=== PATIENT | female | born 1950 | race Caucasian/White ===

== ENCOUNTER 2019-01-16 13:31 | Outpatient (CLI) | payer MEDICARE, OTHER ==
--- NOTE | 2019-01-16 15:20 | BD ---
BONE DENSITOMETRY USING DEXA: Date: 01/16/19 HISTORY: Postmenopausal screening for osteoporosis. FINDINGS: Lumbar Spine: BMD (g/cm2) L1 1.359 T-Score: 3.4 Z-Score: 5.0 L2 1.543 T-Score: 4.7 Z-Score: 6.5 L3 1.698 T-Score: 5.6 Z-Score: 7.5 L4 1.639 T-Score: 5.3 Z-Score: 7.3 L1-L4 1.567 T-Score: 4.7 Z-Score: 6.6 Femoral Neck: 0.820 T-Score: -0.3 Z-Score: 1.3 Total Femur: 1.086 T-Score: 1.2 Z-Score: 2.5 IMPRESSION: Normal bone mineral density. No evidence of osteopenia/osteoporosis. POS: C
--- NOTE | 2019-01-18 15:32 | MMO ---
Bilateral MAMMO Bilat Screen [facility]. CLINICAL HISTORY: Patient is 68 years old and is seen for screening. The patient has no family history of breast cancer. The patient has no personal history of cancer. VIEWS: The views performed were: bilateral craniocaudal with tomosynthesis and bilateral mediolateral oblique with tomosynthesis. FILMS COMPARED: The present examination has been compared to prior imaging studies performed at [facility] on 06/01/2016 and 08/09/2017. MAMMOGRAM FINDINGS: There are scattered fibroglandular densities. There are benign appearing calcifications seen in both breasts. There are no suspicious masses, calcifications or areas of architectural distortion. IMPRESSION: CALCIFICATIONS IN BOTH BREASTS ARE BENIGN. A ROUTINE FOLLOW-UP MAMMOGRAM IN 1 YEAR IS RECOMMENDED. THE RESULTS OF THIS EXAM WERE SENT TO THE PATIENT. ACR BI-RADS Category 2 - Benign finding MAMMOGRAPHY NOTE: 1. A negative mammogram report should not delay a biopsy if a dominant of clinically suspicious mass is present. 2. Approximately 10% to 15% of breast cancers are not detected by mammography. 3. Adenosis and dense breasts may obscure an underlying neoplasm.
== END 2019-01-16 13:32 | disposition home or self-care (01) ==
LOC: BICMAMMO 13:31
PROVIDERS: ATTEND Family Medicine
DX: Z12.31 Encounter for screening mammogram for malignant neoplasm of breast (principal); Z13.820 Encounter for screening for osteoporosis; R92.1 Mammographic calcification found on diagnostic imaging of breast
CPT/HCPCS: 77063; 77067; 77080

== ENCOUNTER 2021-03-14 14:29 | Outpatient (CLI) | payer MEDICARE, OTHER | END 2021-03-14 14:30 | disposition home or self-care (01) | LOC: BICMAMMO 14:29 | PROVIDERS: ATTEND Registered Nurse Community Health | DX: Z12.31 Encounter for screening mammogram for malignant neoplasm of breast (principal) | CPT/HCPCS: 77063; 77067 ==

== ENCOUNTER 2022-05-04 11:36 | Outpatient (CLI) | payer OTHER | END 2022-05-04 11:37 | disposition home or self-care (01) | LOC: SCSMRI 11:36 | PROVIDERS: ATTEND Family Medicine | DX: S33.9XXD Sprain of unspecified parts of lumbar spine and pelvis, subsequent encounter (principal); S30.1XXD Contusion of abdominal wall, subsequent encounter; S43.92XD Sprain of unspecified parts of left shoulder girdle, subsequent encounter; S20.02XD Contusion of left breast, subsequent encounter; M25.552 Pain in left hip; R10.814 Left lower quadrant abdominal tenderness; M47.816 Spondylosis without myelopathy or radiculopathy, lumbar region | CPT/HCPCS: 72148 ==

== ENCOUNTER 2023-12-13 15:06 | Outpatient (CLI) | payer MEDICARE | END 2023-12-13 15:07 | disposition home or self-care (01) | LOC: BICMAMMO 15:06 | PROVIDERS: ATTEND Internal Medicine Rheumatology | DX: M81.0 Age-related osteoporosis without current pathological fracture (principal); M46.1 Sacroiliitis, not elsewhere classified; M47.816 Spondylosis without myelopathy or radiculopathy, lumbar region | CPT/HCPCS: 72202; 77080 ==

== ENCOUNTER 2025-07-14 16:07 | Inpatient (IN) | payer MEDICARE ==
[2025-07-14 17:33] VITALS: BMI 32.8
[2025-07-14] MEDS ORDERED: Ondansetron PF 4 MG/2 ML Vial IVP PRN (19:42)
[2025-07-14] MEDS ORDERED: HYDROcodone/Acetaminophen 5/325 mg Tablet PO PRN (20:45)
[2025-07-14] MEDS ORDERED: NIRMATRELVIR 150 MG (X 2)/RITONAVIR 100 MG TAB PO SCH (21:00)
[2025-07-15 05:10] LABS: #Basophils Less than 0.03 10x3/uL (0.0-0.2); #Eosinophils Less than 0.03 10x3/uL (0.0-0.7); #Monocytes 0.15 10x3/uL (0.11-0.59); #Neutrophils 3.61 10x3/uL (1.40-6.50); %Basophils 0.0 % (0.0-1.0); %Eosinophils 0.0 % (0.0-10.0); %Lymphocytes 24.7 % (21.0-51.0); %Monocytes 3.0 % (0.0-10.0); %Neutrophils 71.9 % (42.0-75.0); Hematocrit 31.0 % (36.0-47.0); Hemoglobin 9.7 g/dL (12.0-16.0); Mean Corpuscular Hemoglobin 27.8 pg (27.0-31.0); Mean Corpuscular Volume 88.8 fL (78.0-98.0); Platelet Count 208 10x3/uL (130-400); Red Blood Cell (RBC) Count 3.49 mill/uL (4.20-5.40); White Blood Cell (WBC) Count 5.02 10x3/uL (4.8-10.8)
[2025-07-15 05:25] LABS: Anion Gap 13 mmol/L (10-20); BUN (Urea Nitrogen) 11 mg/dL (9.8-20.1); Calc. Creatinine Clearance 111 mL/min (70-130); Calcium 9.4 mg/dL (7.8-10.44); Carbon Dioxide 20 mmol/L (23-31); Chloride 112 mmol/L (98-107); Glucose 148 mg/dL (83-110); Potassium 3.4 mmol/L (3.5-5.1); Sodium 142 mmol/L (136-145)
[2025-07-15] MEDS: cefTRIAXone\\ROCEPHIN 1 GM in Sodium Chloride 0.9% 100 ML IVPB SCH (10:53)
[2025-07-15] MEDS: Famotidine 20 MG TAB PO SCH (10:54)
[2025-07-15] MEDS: Enoxaparin 40 MG (0.4 mL) SYRINGE SC SCH (10:54)
[2025-07-15] MEDS: Azithromycin 500 MG in Sodium Chloride 0.9% 250 ML 250 ML IVPB SCH (12:14)
[2025-07-15] MEDS: NIRMATRELVIR 150 MG (X 2)/RITONAVIR 100 MG TAB PO SCH (13:28)
[2025-07-15] MEDS: Gabapentin 300 MG CAP PO SCH (16:44)
[2025-07-15] MEDS ORDERED: Rosuvastatin 20 MG TAB PO SCH (21:00)
[2025-07-15] MEDS: Acetaminophen 325 MG TAB PO PRN (22:24)
[2025-07-16 06:24] LABS: #Basophils Less than 0.03 10x3/uL (0.0-0.2); #Eosinophils Less than 0.03 10x3/uL (0.0-0.7); #Monocytes 0.46 10x3/uL (0.11-0.59); #Neutrophils 7.18 10x3/uL (1.40-6.50); %Basophils 0.1 % (0.0-1.0); %Eosinophils 0.0 % (0.0-10.0); %Lymphocytes 18.3 % (21.0-51.0); %Monocytes 4.9 % (0.0-10.0); %Neutrophils 76.2 % (42.0-75.0); Hematocrit 30.4 % (36.0-47.0); Hemoglobin 9.1 g/dL (12.0-16.0); Mean Corpuscular Hemoglobin 27.3 pg (27.0-31.0); Mean Corpuscular Volume 91.3 fL (78.0-98.0); Platelet Count 234 10x3/uL (130-400); Red Blood Cell (RBC) Count 3.33 mill/uL (4.20-5.40); White Blood Cell (WBC) Count 9.42 10x3/uL (4.8-10.8)
[2025-07-16 06:51] LABS: Anion Gap 11 mmol/L (10-20); BUN (Urea Nitrogen) 17 mg/dL (9.8-20.1); Calc. Creatinine Clearance 112 mL/min (70-130); Calcium 9.0 mg/dL (7.8-10.44); Carbon Dioxide 21 mmol/L (23-31); Chloride 111 mmol/L (98-107); Glucose 114 mg/dL (83-110); Potassium 3.8 mmol/L (3.5-5.1); Sodium 139 mmol/L (136-145)
[2025-07-16 08:20] VITALS: BP 147/74; TEMP 98.3
[2025-07-16] MEDS ORDERED: Guaifenesin DM 100-10/5 ML UDCUP PO PRN (09:14)
[2025-07-16] MEDS ORDERED: Phenol 177 ML BOT PO PRN (09:14)
[2025-07-16] MEDS: Ezetimibe 10 MG TAB PO SCH (10:47)
== END 2025-07-16 15:41 | disposition home or self-care (01) | DRG 177 ==
LOC: SURG B 17:14
PROVIDERS: ADMIT Internal Medicine; ATTEND Internal Medicine
DX: U07.1 COVID-19 (principal); J12.82 Pneumonia due to coronavirus disease 2019; Z88.0 Allergy status to penicillin; Z88.2 Allergy status to sulfonamides; E78.5 Hyperlipidemia, unspecified; K21.9 Gastro-esophageal reflux disease without esophagitis; Z98.890 Other specified postprocedural states; Z98.49 Cataract extraction status, unspecified eye; E87.6 Hypokalemia; D64.9 Anemia, unspecified; Z79.899 Other long term (current) drug therapy
CPT/HCPCS: 36415; 80048; 85025; 87324; 87449; J0456; J0696; J1650; J7050; J8499